=== PATIENT | female | born 1975 | race Caucasian/White ===

== ENCOUNTER 2018-01-23 22:48 | Emergency (ER) | payer BC, OTHER ==
[2018-01-23] MEDS ORDERED: LIDOCAINE 1% 20 ML MDV ONE (23:56)
[2018-01-23] MEDS ORDERED: TETANUS & DIPHTHERIA TOX,ADULT 0.5 ML VIAL ONE (23:56)
--- NOTE | 2018-01-24 00:24 | ER ---
Nurse's Notes [facility] Name: Gema Briones Age: 42 yrs Sex: Female : 1975 Arrival Date: 01/23/2018 Time: 22:49 Bed 19 Private MD: Martínez Bob H Diagnosis: Laceration without foreign body of left middle finger with damage to nail Presentation: 01/23 23:11 Presenting complaint: Patient states: that she was cutting food with a knife and cut fc her finger/fingernail on left ring finger. Bleeding is controlled. Transition of care: patient was not received from another setting of care. Onset of symptoms was January 23, 2018 at 22:30. Risk Assessment: Do you want to hurt yourself or someone else? Patient reports no desire to harm self or others. Initial Sepsis Screen: Does the patient meet any 2 criteria? No. Patient's initial sepsis screen is negative. Does the patient have a suspected source of infection? No. Patient's initial sepsis screen is negative. Care prior to arrival: Bleeding of injury controlled. 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 - Social history:: Smoking status: Patient uses tobacco products, Vapor\E\. - Ebola Screening: : Patient negative for fever greater than or equal to 101.5 degrees Fahrenheit, and additional compatible Ebola Virus Disease symptoms Patient denies exposure to infectious person Patient denies travel to an Ebola-affected area in the 21 days before illness onset. Screenin:15 Abuse screen: Denies threats or abuse. Nutritional screening: No deficits noted. fc Tuberculosis screening: No symptoms or risk factors identified. Fall Risk None identified. Assessment: 23:22 General: Appears in no apparent distress. uncomfortable, Behavior is calm, cooperative, jd3 appropriate for age. Pain: Complains of pain in left ring fingernail Pain currently is 1 out of 10 on a pain scale. Quality of pain is described as tender. Neuro: Level of Consciousness is awake, alert, obeys commands, Oriented to person, place, time, situation, Appropriate for age. Cardiovascular: Capillary refill < 3 seconds Patient's skin is warm and dry. Respiratory: Airway is patent Respiratory effort is even, unlabored, Respiratory pattern is regular, symmetrical, Breath sounds are clear bilaterally. GI: Abdomen is round Patient currently denies nausea, vomiting. : No signs and/or symptoms were reported regarding the genitourinary system. EENT: No signs and/or symptoms were reported regarding the EENT system. Derm: Skin is intact, Skin is dry, Skin is normal, Skin temperature is warm. Musculoskeletal: Circulation, motion, and sensation intact. Range of motion: intact in all extremities. Injury Description: Laceration sustained to left ring fingernail is clean, 0.5 to 2.5 cm long, not bleeding, was sustained 30-60 minutes ago. a small amount of bleeding noted at this time. 01/24 00:07 Reassessment: Patient appears in no apparent distress at this time. Patient and/or jd3 family updated on plan of care and expected duration. Pain level reassessed. Patient is alert, oriented x 3, equal unlabored respirations, skin warm/dry/pink. provider at bedside. 00:30 Reassessment: Patient appears in no apparent distress at this time. Patient and/or jd3 family updated on plan of care and expected duration. Pain level reassessed. Patient is alert, oriented x 3, equal unlabored respirations, skin warm/dry/pink. pt reported understanding of discharge instructions, even and steady gait upon discharge. Vital Signs: 01/23 23:14 BP 142 / 106; Pulse 104; Resp 18; Temp 99.5(O); Pulse Ox 98% ; Weight 86.64 kg (R); fc Height 5 ft. 7 in. (170.18 cm) (R); Pain 2/10; 01/24 00:01 BP 122 / 94; Pulse 100; Resp 18 S; Pulse Ox 98% on R/A; Pain 1/10; jd3 01/23 23:14 Body Mass Index 29.92 (86.64 kg, 170.18 cm) ED Course: 01/23 22:49 Patient arrived in ED. am2 22:50 Martínez Bob DO is Private Physician. am2 23:12 Sachin Portillo NP is PHCP. pm1 23:12 Serge Berger MD is Attending Physician. pm1 23:13 Triage completed. fc 23:14 Brandon Dumont RN is Primary Nurse. jd3 23:14 Arm band placed on Patient placed in an exam room, on a stretcher. fc 23:15 Patient has correct armband on for positive identification. Bed in low position. Call fc light in reach. Pulse ox on. NIBP on. 23:15 Assist provider with laceration repair on left ring fingernail that was 2.5 cm. or less fc Set up tray. Performed by Sachin Portillo NP Dressed with 4X4s, Neosporin, Patient tolerated well. Patient did not have IV access during this emergency room visit. 01/24 00:22 Martínez Bob DO is Referral Physician. 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 Exp: jd3 04/02/2020. Lot #: [id number]. } Route: IM; Site: left deltoid; 00:29 Follow up: Response: No adverse reaction jd3 00:07 Drug: Lidocaine (1 %) 5 ml {Note: administered by Sachin Portillo NP.} Volume: 5 ml; jd3 Route: Infiltration; 00:28 Follow up: Response: No adverse reaction jd3 Outcome: 00:23 Discharge ordered by . pm1 00:29 Discharged to home ambulatory, with family. jd3 00:29 Condition: stable 00:29 Discharge instructions given to patient, family, Instructed on discharge instructions, follow up and referral plans. Demonstrated understanding of instructions, follow-up care. 00:32 Patient left the ED. jd3 Signatures: Rebeka Pryor RN RN Sachin Portillo NP PASSENGER COACH DRIVER pm1 Alyssa Chong am2 Brandon Dumont RN RN jd3 Corrections: (The following items were deleted from the chart) 01/23 23:44 23:14 BP 142 / 106; Pulse 104bpm; Resp 18bpm; Pulse Ox 98%; 86.64 kg Reported; Height 5 fc ft. 7 in. Reported; BMI: 29.9; Pain 2/10; fc 01/24 00:31 01/23 23:15 No provider procedures requiring assistance completed. jd3
--- NOTE | 2018-01-24 00:25 | EDPHYS ---
Physician Documentation [facility] Name: Gema Briones Age: 42 yrs Sex: Female : 1975 Arrival Date: 01/23/2018 Time: 22:49 Bed 19 Private MD: Martínez Bob H ED Physician Serge Berger HPI: 01/24 03:44 This 42 yrs old Female presents to ER via Ambulatory with complaints of pm1 Finger Injury. 03:45 Trauma demographics: Location of Injury: The injury occurred at home. Mechanism of pm1 injury: Accidentally cut her finger will cutting food. Associated injuries: The patient sustained left middle fingernail. Onset: The symptoms/episode began/occurred just prior to arrival. The patient has not experienced similar symptoms in the past. Patient was cutting food and cut the tip of her left middle finger nail. 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 - Social history:: Smoking status: Patient uses tobacco products, Vapor\E\. - Ebola Screening: : Patient negative for fever greater than or equal to 101.5 degrees Fahrenheit, and additional compatible Ebola Virus Disease symptoms Patient denies exposure to infectious person Patient denies travel to an Ebola-affected area in the 21 days before illness onset. ROS: 23:59 Constitutional: Negative for fever, chills, and weight loss, Eyes: Negative for injury, pm1 pain, redness, and discharge, ENT: Negative for injury, pain, and discharge, Neck: Negative for injury, pain, and swelling, Cardiovascular: Negative for chest pain, palpitations, and edema, Respiratory: Negative for shortness of breath, cough, wheezing, and pleuritic chest pain, Abdomen/GI: Negative for abdominal pain, nausea, vomiting, diarrhea, and constipation, Back: Negative for injury and pain, : Negative for injury, bleeding, discharge, and swelling. 23:59 Neuro: Negative for headache, weakness, numbness, tingling, and seizure. 23:59 MS/extremity: Positive for laceration, of the left ring fingernail. 23:59 Skin: Positive for laceration(s), of the left ring fingernail. Exam: 01/24 00:00 Constitutional: This is a well developed, well nourished patient who is awake, alert, pm1 and in no acute distress. Head/Face: Normocephalic, atraumatic. Chest/axilla: Normal chest wall appearance and motion. Nontender with no deformity. No lesions are appreciated. Cardiovascular: Regular rate and rhythm with a normal S1 and S2. No gallops, murmurs, or rubs. Normal PMI, no JVD. No pulse deficits. Respiratory: Lungs have equal breath sounds bilaterally, clear to auscultation and percussion. No rales, rhonchi or wheezes noted. No increased work of breathing, no retractions or nasal flaring. Back: No spinal tenderness. No costovertebral tenderness. Full range of motion. Skin: Appearance: normal except for affected area, injury, laceration(s), that can be described as clean, no foreign body, Partial avulsion of distal left middle finger nail attached by skin on medial aspect. Vital Signs: 01/23 23:14 BP 142 / 106; Pulse 104; Resp 18; Temp 99.5(O); Pulse Ox 98% ; Weight 86.64 kg (R); fc Height 5 ft. 7 in. (170.18 cm) (R); Pain 2/10; 01/24 00:01 BP 122 / 94; Pulse 100; Resp 18 S; Pulse Ox 98% on R/A; Pain 1/10; jd3 01/23 23:14 Body Mass Index 29.92 (86.64 kg, 170.18 cm) fc Laceration: 00:00 Wound Repair of 1cm ( 0.4in ) subcutaneous laceration to left middle fingernail. Distal pm1 neuro/vascular/tendon intact. Anesthesia: Digital block administered with 2 mls of 1% lidocaine. Wound prep: Extensive cleansing by me, Wound irrigation by me, Wound explored extensively, Copious irrigation. Skin closed with 1-0 Prolene using Removal of partially avulsed finger nail. No damage to nail bed present. Dressed with 4x4's, pressure dressing. Patient tolerated well. MDM: 01/23 23:12 Patient medically screened. pm1 01/24 00:01 Data reviewed: vital signs. Data interpreted: Pulse oximetry: on room air is 98 %. pm1 Interpretation: normal. Counseling: I had a detailed discussion with the patient and/or guardian regarding: the historical points, exam findings, and any diagnostic results supporting the discharge/admit diagnosis, to return to the emergency department if symptoms worsen or persist or if there are any questions or concerns that arise at home. 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 Exp: jd3 04/02/2020. Lot #: [id number]. } Route: IM; Site: left deltoid; 00:29 Follow up: Response: No adverse reaction jd3 00:07 Drug: Lidocaine (1 %) 5 ml {Note: administered by Sachin Portillo STEAM GIGGER.} Volume: 5 ml; jd3 Route: Infiltration; 00:28 Follow up: Response: No adverse reaction jd3 Disposition: 01/24/18 00:23 Discharged to Home. Impression: Laceration without foreign body of left middle finger with damage to nail. - Condition is Stable. - Discharge Instructions: Laceration Care, Adult. - Medication Reconciliation Form, Thank You Letter, Antibiotic Education form. - Follow up: Emergency Department; When: As needed; Reason: Worsening of condition. Follow up: Martínez Bob DO; When: As needed; Reason: Wound Recheck, Recheck today's complaints, Continuance of care, Re-evaluation by your physician. - Problem is new. - Symptoms have improved. Addendum: 01/27/2018 07:15 Co-signature as Attending Physician, Serge Berger MD. g s Signatures: Rebeka Pryor RN RN Sachin Reyes NP STEAM GIGGER pm1 Serge Berger MD MD gs Davies, Jonathon, RN RN jd3 Corrections: (The following items were deleted from the chart) 01/24 00:32 00:23 01/24/2018 00:23 Discharged to Home. Impression: Laceration without foreign body jd3 of left middle finger with damage to nail. Condition is Stable. Forms are Medication Reconciliation Form, Thank You Letter, Antibiotic Education, Prescription Opioid Use. Follow up: Emergency Department; When: As needed; Reason: Worsening of condition. Follow up: Martínez Bob; When: As needed; Reason: Wound Recheck, Recheck today's complaints, Continuance of care, Re-evaluation by your physician. Problem is new. Symptoms have improved. pm1
== END 2018-01-24 00:32 | disposition home or self-care (01) ==
LOC: ER 22:48
PROC: 0JQK0ZZ Repair Left Hand Subcutaneous Tissue and Fascia, Open Approach (ICD-10-PCS; principal; 2018-01-24)
DX: S61.313A Laceration without foreign body of left middle finger with damage to nail, initial encounter (principal); W45.8XXA Other foreign body or object entering through skin, initial encounter; Y93.G3 Activity, cooking and baking; Y92.000 Kitchen of unspecified non-institutional (private) residence as the place of occurrence of the external cause; Z23 Encounter for immunization
CPT/HCPCS: 90714; 99283

== ENCOUNTER 2022-08-09 22:48 | Emergency (ER) | payer BC, OTHER ==
[2022-08-09] MEDS ORDERED: LEVALBUTEROL 1.25 MG/3 ML NEB ONE (23:39)
[2022-08-09] MEDS ORDERED: IPRATROPIUM BROM 0.5MG/2.5ML ONE (23:39)
[2022-08-09] MEDS ORDERED: METHYLPREDNISOLONE 125 MG INJ ONE (23:39)
[2022-08-10 00:12] LABS: Absolute Lymphocytes (CBC) 2.9 K/uL (0.7-4.9); Hematocrit 35.8 % (36.0-45.0); Lymphocytes % 20.8 % (15.3-44.8); MCV 74.5 fL (80-100); MPV 8.1 fL (7.6-11.3); RBC Red Blood Cell Count 4.81 M/uL (3.86-4.86)
[2022-08-10 00:30] LABS: Troponin High Sensitivity 3.8 pg/mL (<58.9)
[2022-08-10 00:35] LABS: SARS-COV-2 RT PCR NEGATIVE (NEGATIVE)
[2022-08-10 00:40] LABS: Magnesium 1.9 mg/dL (1.6-2.4); Potassium 3.9 mmol/L (3.5-5.1)
--- NOTE | 2022-08-10 01:22 | EDPHYS ---
Physician Documentation [facility] Name: Gema Briones Age: 47 yrs Sex: Female : 1975 Arrival Date: 08/09/2022 Time: 23:05 Bed 19 Private MD: ED Physician Sebas Graves HPI: 08/09 23:35 This 47 yrs old Female presents to ER via Ambulatory with complaints of Asthma cp Exacerbation. 23:35 The patient has shortness of breath at rest. cp 23:35 Onset: The symptoms/episode began/occurred 3 day(s) ago, and became worse today. cp Duration: The symptoms are continuous, and are steadily getting worse. Associated signs and symptoms: Pertinent positives: chest pain, non-productive cough, Pertinent negatives: productive cough, diaphoresis, fever, vomiting. Severity of symptoms: in the emergency department the symptoms are unchanged despite home interventions. Patient reports history of asthma. Has been using prescribed inhaler w/o relief. Denies fever, productive cough, body aches, sore throat. 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 - Social history:: Smoking status: Patient denies any tobacco usage or history of. ROS: 23:40 Constitutional: Negative for body aches, chills, fever, poor PO intake. cp 23:40 Eyes: Negative for injury, pain, redness, and discharge. cp 23:40 ENT: Negative for drainage from ear(s), ear pain, sore throat, difficulty swallowing, difficulty handling secretions. 23:40 Cardiovascular: Positive for chest pain, with cough, Negative for edema, palpitations. 23:40 Respiratory: Positive for cough, with no reported sputum, shortness of breath, at rest. wheezing. 23:40 Abdomen/GI: Negative for abdominal pain, nausea, vomiting, and diarrhea, constipation. 23:40 Skin: Negative for cellulitis, rash. 23:40 Neuro: Negative for altered mental status, dizziness, headache, syncope, weakness. 23:40 All other systems are negative. Exam: 23:45 Constitutional: The patient appears in no acute distress, alert, awake, cp non-diaphoretic, non-toxic, well developed, well nourished, overweight 23:45 Head/Face: Normocephalic, atraumatic. cp 23:45 Eyes: Periorbital structures: appear normal, Conjunctiva: normal, no exudate, no injection, Sclera: no appreciated abnormality, Lids and lashes: appear normal, bilaterally. 23:45 ENT: External ear(s): are unremarkable, Ear canal(s): are normal, clear, TM's: dullness, bilaterally, Nose: is normal, Mouth: Lips: moist, Oral mucosa: pink and intact, moist, Posterior pharynx: Airway: no evidence of obstruction, patent, erythema, is not appreciated, exudate, is not appreciated. 23:45 Neck: ROM/movement: is normal, is supple, without pain, no range of motions limitations, no meningismus, Lymph nodes: no appreciated lymphadenopathy. 23:45 Chest/axilla: Inspection: normal. 23:45 Cardiovascular: Rate: tachycardic, Rhythm: regular, Edema: is not appreciated, JVD: is not appreciated. 23:45 Respiratory: the patient does not display signs of respiratory distress, Respirations: labored breathing, that is mild, Breath sounds: decreased breath sounds, that are mild, throughout, stridor, is not appreciated, wheezing: that is mild, is heard diffusely. 23:45 Abdomen/GI: Inspection: abdomen appears normal, Palpation: abdomen is soft and non-tender, in all quadrants. 23:45 Skin: cellulitis, is not appreciated, no rash present. 23:45 Neuro: Orientation: to person, place \T\ time. Mentation: is normal, Motor: moves all fours, strength is normal. 08/10 00:28 ECG was reviewed by the Attending Physician. cp Vital Signs: 08/09 23:27 BP 165 / 110; Pulse 101; Resp 14; Temp 98.1(O); Pulse Ox 100% ; Weight 102.06 kg; hb Height 5 ft. 7 in. (170.18 cm); Pain 2/10; 08/10 00:30 BP 129 / 84; Pulse 103; Resp 20; Temp 98; Pulse Ox 95% on R/A; Pain 0/10; pf1 01:00 BP 125 / 81; Pulse 100; Resp 18 S; Pulse Ox 100% on R/A; ha1 08/09 23:27 Body Mass Index 35.24 (102.06 kg, 170.18 cm) hb MDM: 08/09 23:34 Patient medically screened. cp 23:55 Differential diagnosis: asthma, Bronchitis CHF exacerbation, Chronic Obstructive cp Pulmonary Disease Myocardial Infarction pneumonia, Pneumothorax pulmonary edema, Pulmonary Embolism Sepsis. 08/10 01:20 Data reviewed: vital signs, nurses notes, lab test result(s), EKG, radiologic studies, cp plain films. Test interpretation: by ED physician or midlevel provider: ECG, plain radiologic studies. Counseling: I had a detailed discussion with the patient and/or guardian regarding: the historical points, exam findings, and any diagnostic results supporting the discharge/admit diagnosis, lab results, radiology results, to return to the emergency department if symptoms worsen or persist or if there are any questions or concerns that arise at home. Response to treatment: the patient's symptoms have markedly improved after treatment, and as a result, I will discharge patient. 08/09 23:30 Order name: Basic Metabolic Panel; Complete Time: 00:57 cp 08/10 00:57 Interpretation: Normal except: GLUC 132; GFR 79. cp 08/09 23:30 Order name: CBC with Diff; Complete Time: 00:57 cp 08/10 00:57 Interpretation: Normal except: WBC 14.20; HGB 11.3; HCT 35.8; MCV 74.5; MCH 23.6; MCHC cp 31.7; RDW 17.2; EOSINOPHIL % 26.4; EOSA 3.7. 08/09 23:30 Order name: D-Dimer; Complete Time: 00:57 cp 08/09 23:30 Order name: Magnesium; Complete Time: 00:57 cp 08/09 23:30 Order name: NT PRO-BNP; Complete Time: 00:57 cp 08/09 23:30 Order name: Troponin HS; Complete Time: 00:57 cp 08/09 23:30 Order name: XRAY Chest (1 view) cp 08/09 23:30 Order name: EKG; Complete Time: 23:31 cp 08/09 23:30 Order name: Cardiac monitoring; Complete Time: 00:45 cp 08/09 23:30 Order name: EKG - Nurse/Tech; Complete Time: 00:45 cp 08/09 23:30 Order name: COVID-19/FLU A+B; Complete Time: 00:57 cp 08/09 23:30 Order name: IV Saline Lock; Complete Time: 23:53 cp 08/09 23:30 Order name: Labs collected and sent; Complete Time: 23:53 cp 08/09 23:30 Order name: O2 Per Protocol; Complete Time: 23:53 cp 08/09 23:30 Order name: O2 Sat Monitoring; Complete Time: 23:53 cp 08/09 23:30 Order name: Urine Test (obtain specimen); Complete Time: 23:54 cp 08/09 23:30 Order name: Urine Dipstick-Ancillary (obtain specimen); Complete Time: 01:10 cp EC:28 Rate is 108 beats/min. Rhythm is regular. [place] interval is normal. QRS interval is cp normal. QT interval is normal. Interpreted by me. Reviewed by me. Administered Medications: 08/09 23:35 Drug: AtroVENT (ipratropium) Aerosol 0.5 mg Route: Inhalation; pf1 08/10 00:10 Follow up: Response: No adverse reaction ha1 08/09 23:35 Drug: Xopenex (levalbuterol) (3) 1.25 mg Route: Inhalation; pf1 08/10 00:10 Follow up: Response: No adverse reaction ha1 08/09 23:40 Drug: SOLU-Medrol (methylPrednisoLONE) 125 mg Route: IVP; Site: right antecubital; pf1 08/10 00:10 Follow up: Response: No adverse reaction 1 Disposition: 03:01 Co-signature as Attending Physician, Sebas Graves MD I agree with the assessment and kdr plan of care. Disposition Summary: 08/10/22 01:21 Discharge Ordered Location: Home cp Problem: an acute exacerbation cp Symptoms: have improved cp Condition: Stable cp Diagnosis - Unspecified asthma with (acute) exacerbation cp Followup: cp - With: Private Physician - When: 2 - 3 days - Reason: Recheck today's complaints Discharge Instructions: - Discharge Summary Sheet cp - Asthma, Adult cp Forms: - Medication Reconciliation Form cp - Thank You Letter cp - Antibiotic Education cp - Prescription Opioid Use cp Prescriptions: - albuterol sulfate 90 mcg/actuation Inhalation HFA aerosol inhaler - inhale 1 puff by INHALATION route every 4-6 hours; 1 Inhaler; Refills: 0, cp Product Selection Permitted - Prednisone 20 mg Oral Tablet - take 3 tablets by ORAL route once daily for 5 days; 15 tablet; Refills: 0, cp Product Selection Permitted Signatures: Dispatcher [employer] EDSebas pSencer MD MD kdr Page, Corey, PA PA cp Baxter, Heather, RN RN Selene bianchi RN RN pf1 Rajwinder Byrne RN ha1
--- NOTE | 2022-08-10 01:22 | ER ---
Nurse's Notes [facility] Name: Gema Briones Age: 47 yrs Sex: Female : 1975 Arrival Date: 08/09/2022 Time: 23:05 Bed 19 Private MD: Diagnosis: Unspecified asthma with (acute) exacerbation Presentation: 08/09 23:27 Chief complaint: Chest tightness, cough, wheezing, and SOB x 2-3 days, unrelieved by hb albuterol inhaler. Coronavirus screen: Client presents with at least one sign or symptom that may indicate coronavirus-19. Provider contacted for isolation considerations. Ebola Screen: No symptoms or risks identified at this time. Initial Sepsis Screen: Does the patient meet any 2 criteria? No. Patient's initial sepsis screen is negative. Does the patient have a suspected source of infection? No. Patient's initial sepsis screen is negative. Risk Assessment: Do you want to hurt yourself or someone else? Patient reports no desire to harm self or others. Onset of symptoms was August 07, 2022. 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 - Social history:: Smoking status: Patient denies any tobacco usage or history of. Screenin/10 00:10 Abuse screen: Denies threats or abuse. Denies injuries from another. Nutritional ha1 screening: No deficits noted. Tuberculosis screening: No symptoms or risk factors identified. 00:10 Fall Risk IV access (20 points). Total Conway Fall Scale indicates No Risk (0-24 pts). ha1 Assessment: 00:10 General: Appears uncomfortable, Behavior is cooperative, anxious. Pain: Denies pain. ha1 Neuro: Level of Consciousness is awake, alert, obeys commands, Oriented to person, place, time, situation. Cardiovascular: Capillary refill < 3 seconds Patient's skin is warm and dry. Respiratory: Airway is patent Trachea midline Respiratory effort is even, Respiratory pattern is tachypnea. Respiratory: Reports shortness of breath cough that is non-productive. GI: No signs and/or symptoms were reported involving the gastrointestinal system. Abdomen is non-distended, obese, Bowel sounds present X 4 quads. : No signs and/or symptoms were reported regarding the genitourinary system. EENT: No deficits noted. No signs and/or symptoms were reported regarding the EENT system. Derm: No deficits noted. No signs and/or symptoms reported regarding the dermatologic system. Musculoskeletal: Circulation, motion, and sensation intact. Range of motion: intact in all extremities. 01:10 Reassessment: Patient and/or family updated on plan of care and expected duration. Pain ha1 level reassessed. Patient is alert, oriented x 3, equal unlabored respirations, skin warm/dry/pink. Patient states feeling better. Patient states symptoms have improved. Vital Signs: 08/09 23:27 BP 165 / 110; Pulse 101; Resp 14; Temp 98.1(O); Pulse Ox 100% ; Weight 102.06 kg; hb Height 5 ft. 7 in. (170.18 cm); Pain 2/10; 12 00:30 BP 129 / 84; Pulse 103; Resp 20; Temp 98; Pulse Ox 95% on R/A; Pain 0/10; pf1 01:00 BP 125 / 81; Pulse 100; Resp 18 S; Pulse Ox 100% on R/A; ha1 08/09 23:27 Body Mass Index 35.24 (102.06 kg, 170.18 cm) hb ED Course: 08/09 23:05 Patient arrived in ED. bp1 23:22 Qasim Zamudio PA is PHCP. cp 23:22 Sebas Graves MD is Attending Physician. cp 23:28 Triage completed. hb 23:28 Arm band placed on. hb 23:45 Inserted saline lock: 20 gauge in right antecubital area, using aseptic technique. pf1 Blood collected. 23:53 COVID-19/FLU A+B Sent. pf1 23:53 Basic Metabolic Panel Sent. pf1 23:53 CBC with Diff Sent. pf1 23:53 D-Dimer Sent. pf1 23:53 Magnesium Sent. pf1 23:53 NT PRO-BNP Sent. pf1 23:53 Troponin HS Sent. pf1 08/10 00:10 Patient has correct armband on for positive identification. Placed in gown. Bed in low ha1 position. Call light in reach. Side rails up X 1. 00:33 XRAY Chest (1 view) In Process Unspecified. EDMS 00:41 Rajwinder Byrne, RN is Primary Nurse. ha1 01:28 No provider procedures requiring assistance completed. pf1 01:30 IV discontinued, intact, bleeding controlled, No redness/swelling at site. Pressure ha1 dressing applied. Administered Medications: 08/09 23:35 Drug: AtroVENT (ipratropium) Aerosol 0.5 mg Route: Inhalation; pf1 08/10 00:10 Follow up: Response: No adverse reaction ha1 08/09 23:35 Drug: Xopenex (levalbuterol) (3) 1.25 mg Route: Inhalation; pf1 08/10 00:10 Follow up: Response: No adverse reaction ha1 08/09 23:40 Drug: SOLU-Medrol (methylPrednisoLONE) 125 mg Route: IVP; Site: right antecubital; pf1 08/10 00:10 Follow up: Response: No adverse reaction ha1 Medication: 01:30 VIS not applicable for this client. ha1 Outcome: 01:21 Discharge ordered by . cp 01:30 Discharged to home ambulatory, with family. ha1 01:30 Condition: stable 01:30 Discharge instructions given to patient, family, Instructed on discharge instructions, follow up and referral plans. Demonstrated understanding of instructions, follow-up care, Prescriptions given X 2. 01:32 Patient left the ED. ha1 Signatures: Dispatcher [employer] EDDC Qasim Zamudio PA PA cp Baxter, Heather, RN RN [facility] Rajwinder Byrne RN RN ha1 Selene bianchi RN RN pf1
[2022-08-10 16:13] VITALS: TEMP 98
[2022-08-10 16:14] VITALS: BP 125/81; O2SAT 100
--- NOTE | 2022-08-11 17:48 | RAD REPORT ---
EXAM DESCRIPTION: RAD - Chest Single View - 08/10/2022 12:31 am CLINICAL HISTORY: 47 years Female SOB COMPARISON: None FINDINGS: Lung volumes adequate. Cardiac silhouette is normal. No pneumothorax. No large pleural effusion. No focal consolidation. No acute bony finding. IMPRESSION: No acute cardiopulmonary findings. Electronically signed by: Nidhi Bee MD 08/10/2022 12:43 AM TREE WRAPPER Due to temporary technical issues with the PACS/Fluency reporting system, reports are being signed by the in house radiologists without review as a courtesy to insure prompt reporting. The interpreting radiologist is fully responsible for the content of the report.
--- NOTE | 2022-08-12 15:02 | EKG ---
Test Date: 2022-08-10 Test Time: 00:23:31 Repeat Chief: TOSHA MEASUREMENT RESULTS: Intervals: Rate: 108 MO: 166 QRSD: 86 QT: 334 QTc: 447 [place]: P: 47 MO: 166 QRS: 49 T: 76 INTERPRETIVE STATEMENTS: Sinus tachycardia Nonspecific T wave abnormality Abnormal ECG No previous ECG available for comparison Electronically Signed On 08-12-22 14:57:28 LEI SELLER by Kristian Drummond
== END 2022-08-10 01:32 | disposition home or self-care (01) ==
LOC: ER 22:48
DX: J45.901 Unspecified asthma with (acute) exacerbation (principal); Z20.822 Contact with and (suspected) exposure to COVID-19
CPT/HCPCS: 93005; 85025; 80048; 36415; 83735; 85379; 84484; 83880; 0240U; 71045; 96374; 99284; J7614; J7644; J2930